=== PATIENT | male | born 1940 | race Caucasian/White ===

== ENCOUNTER 2021-07-09 10:40 | Observation (INO) ==
[2021-07-09 12:48] LABS: Immature Platelets 5.6 % (1.1-6.1); Mean Corpuscular HGB Conc 34.1 g/dL (31.6-35.5); Mean Corpuscular Volume 102.4 fL (83.0-100.0); Mean Platelet Volume 11.2 fL (9.4-12.4); Nucleated Red Blood Cells 1.3 /100 WBC (0); Red Blood Count 1.23 M/mcL (4.19-5.50); Red Cell Distribution Width 21.4 % (11.5-14.5); White Blood Count 1.5 K/mcL (4.3-11.1)
[2021-07-09 13:08] LABS: Platelet Count 37 K/mcL (140-400)
[2021-07-09 13:19] LABS: Hematocrit 12.6 % (37.5-50.1); Hemoglobin 4.3 g/dL (12.9-16.9)
[2021-07-09 13:53] LABS: Eosinophils # 0.1 K/mcL (0.0-0.6); Lymphocytes # 0.8 K/mcL (0.6-4.6); Neutrophils # 0.5 K/mcL (1.6-8.9)
[2021-07-09] MEDS ORDERED: Naloxone 0.4 MG/ML INJ IVP PRN (13:53)
[2021-07-09 13:54] LABS: Anisocytosis 2+ (Not Present); Macrocytosis Present (Not Present); Microcytosis Present (Not Present); Platelet Estimate Marked Decrease (Normal)
[2021-07-09] MEDS ORDERED: Acetaminophen 325 MG TABLET PO PRN (14:12)
[2021-07-09] MEDS ORDERED: D5% in Water 1,000 ML IVC PRN (14:13)
[2021-07-09] MEDS ORDERED: *HR* Dextrose 50 % in Water (Syg) 50 ML SYRINGE IVP PRN (14:13)
[2021-07-09] MEDS ORDERED: Dextrose 4 GM Chewable Tablets PO PRN ×2 (14:13)
[2021-07-09 15:01] LABS: Alanine Aminotransferase 17 Units/L (7-52); Albumin 2.8 g/dL (3.5-5.7); Albumin/Globulin Ratio 0.8 (1.1-2.2); Alkaline Phosphatase 77 Units/L (34-104); Aspartate Amino Transferase 13 Units/L (13-39); BUN/Creatinine Ratio 39 (6-26); Bilirubin,Total 1.1 mg/dL (0.3-1.0); Blood Urea Nitrogen 33 mg/dL (8-23); Calcium 8.5 mg/dL (8.6-10.3); Carbon Dioxide 23 mEq/L (23-29); Chloride 95 mEq/L (98-107); Globulin 3.7 g/dL (2.4-3.5); Glucose 180 mg/dL (70-105); Osmolality,Calculated 276 (280-300); Potassium 4.5 mEq/L (3.5-5.1); Sodium 127 mEq/L (136-145); Total Protein 6.5 g/dL (6.4-8.9); eGFR For African Americans > 60 (> 60); eGFR For Non-African Americans > 60 (> 60)
[2021-07-09] MEDS: Cortisporin *EAR*Susp 10 ML BOTTLE BOTH EARS SCH ×2 (17:21→20:57)
[2021-07-09] MEDS: Insulin LISPRO 300 UNITS/3 ML VIAL SUBQ SCH (17:50)
[2021-07-09] MEDS: 0.9 % Sodium Chloride 1,000 ML IVC SCH (17:51)
[2021-07-09] MEDS ORDERED: 0.9 % Sodium Chloride 250 ML ONE (18:08)
[2021-07-09 19:20] LABS: Hematocrit 15.2 % (37.5-50.1)
[2021-07-09 19:26] LABS: Hemoglobin 5.1 g/dL (12.9-16.9)
[2021-07-09 20:05] LABS: Protein/Creatinine Ratio,Urine 0.14 mg/mg (0.00-0.20); Sodium, Urine 21.3 mEq/L
[2021-07-09] MEDS ORDERED: Insulin LISPRO 300 UNITS/3 ML VIAL SUBQ SCH (21:00)
[2021-07-10 01:54] LABS: Hematocrit 21.2 % (37.5-50.1); Hemoglobin 7.5 g/dL (12.9-16.9); Mean Corpuscular HGB Conc 35.4 g/dL (31.6-35.5); Mean Corpuscular Hemoglobin 31.8 pg (28.0-33.3); Mean Corpuscular Volume 89.8 fL (83.0-100.0); Mean Platelet Volume 9.8 fL (9.4-12.4); Red Blood Count 2.36 M/mcL (4.19-5.50); Red Cell Distribution Width 19.8 % (11.5-14.5)
[2021-07-10 03:21] LABS: BUN/Creatinine Ratio 36 (6-26); Blood Urea Nitrogen 26 mg/dL (8-23); Calcium 8.1 mg/dL (8.6-10.3); Carbon Dioxide 23 mEq/L (23-29); Chloride 99 mEq/L (98-107); Glucose 128 mg/dL (70-105); Osmolality,Calculated 274 (280-300); Potassium 4.3 mEq/L (3.5-5.1); Sodium 129 mEq/L (136-145); eGFR For African Americans > 60 (> 60); eGFR For Non-African Americans > 60 (> 60)
[2021-07-10] MEDS: 0.9 % Sodium Chloride 1,000 ML IVC SCH (05:15)
[2021-07-10 07:48] VITALS: TEMP 97.8
[2021-07-10] MEDS: Insulin LISPRO 300 UNITS/3 ML VIAL SUBQ SCH ×3 (08:14→16:16)
[2021-07-10] MEDS ORDERED: amLODIPine 5 MG TABLET PO SCH (09:00)
[2021-07-10] MEDS ORDERED: allopurinoL 300 MG TABLET PO SCH (09:00)
[2021-07-10] MEDS: Cortisporin *EAR*Susp 10 ML BOTTLE BOTH EARS SCH ×2 (09:50→15:04)
[2021-07-10 10:53] VITALS: BP 103/86; PULSE 98; O2SAT 97
[2021-07-10] MEDS ORDERED: Acyclovir 200 MG CAPSULE PO SCH (21:00)
[2021-07-15] MEDS ORDERED: Ergocalciferol (VIT D2) 50,000 UNIT (1.25MG) CAP PO SCH (09:00)
== END 2021-07-10 16:20 | disposition home or self-care (01) ==
LOC: 2NENU 10:40 → EMEROOARM 10:40 → SUATTDRO 14:45 → 2NENU 15:36
PROVIDERS: ADMIT Hospitalist; ATTEND General Practice